=== PATIENT | female | born 1955 | race Caucasian/White ===

== ENCOUNTER 2017-05-09 03:48 | Emergency (ER) | payer OTHER ==
[2017-05-09] MEDS ORDERED: FAMOTIDINE IN SALINE, ISO-OSM 20 MG/50 ML PIGGYBACK IV ONE (04:21)
[2017-05-09] MEDS ORDERED: ONDANSETRON HCL 4 MG/2 ML VIAL ONE (04:21)
[2017-05-09] MEDS ORDERED: NORMAL SALINE 2,000 ML IV ONE (04:21)
[2017-05-09 04:26] LABS: BLOOD UREA NITROGEN 21 mg/dL (7-17); CHLORIDE 100 mmol/L (98-107); EST GLOMERULAR FILTRATION RATE > 60 mL/min; GLUCOSE 125 mg/dL (70-100); POTASSIUM 3.8 mmol/L (3.5-5.1); SODIUM 137 mmol/L (137-145)
[2017-05-09] MEDS ORDERED: ONDANSETRON ODT 4 MG TAB.RAPDIS ONE (04:53)
--- NOTE | 2017-05-09 05:50 | ER PHYSICIAN DOCUMENTATION ---
Physician Documentation [facility] Name:Belkis Marcial Age:61 yrs Sex:Female :1955 Arrival Date:05/09/2017 Time:03:48 Bed3 Private MD: Abram Joel Disposition: 05/09/17 03:55 Discharged to Home/Self Care. Impression: Gastroenteritis. - Condition is Good. - Discharge Instructions: GASTROENTERITIS, Viral [4y-Adult]. - Prescriptions for Zofran 4 mg Oral Tablet - take 1-2 tablet by ORAL route every 4-6 hours As needed; 10 tablet. - Medical Reconciliation form form. - Follow up: Private Physician; When: As needed; Reason: Continuance of care. - Problem is new. - Symptoms have improved. HPI: 05/09 04:00 This 61 yrs old Female presents to ER via Walk In with complaints of jm Nausea/Vomiting/Diarrhea. 04:00 The patient presents to the emergency department with nausea, with vomiting, with jm diarrhea, without any complaints of abdominal pain. Onset: The symptom(s)/episode began/occurred today. Historical: - Allergies: No known drug Allergies; - Home Meds: 1. None - PMHx: None; - PSHx: None; - Tetanus: < 10 years. - Ebola Screening: : Patient negative for fever greater than or equal to 101.5 degrees Fahrenheit, and additional compatible Ebola Virus Disease symptoms. Patient denies exposure to infectious person. Patient denies travel to an Ebola-affected area in the 21 days before illness onset. No symptoms or risks identified at this time. . - Immunization history: Flu Vaccine < 1 year. - Social history: Smoking status: Patient states was never smoker of tobacco. Patient/guardian denies using alcohol, street drugs. ROS: 04:00 Constitutional: Positive for fatigue, malaise. jm 04:00 Abdomen/GI: Positive for nausea, vomiting, diarrhea, Negative for abdominal pain. 04:00 Neuro: Positive for weakness. Exam: 04:00 Constitutional: The patient appears alert, awake, comfortable. jm 04:00 Cardiovascular: Rate: normal, Rhythm: regular. 04:00 Abdomen/GI: Bowel sounds: normal, Palpation: abdomen is soft and non-tender. 04:00 Psych: Behavior/mood is pleasant, Affect is calm. Vital Signs: 04:02 BP 137 / 57; Pulse 73; Resp 15; Temp 98.3; Pulse Ox 94% on R/A; Weight 46.27 kg; Height mk2 5 ft. 1 in. (154.94 cm); Pain 0/10; 04:52 BP 125 / 66; Pulse 75; Resp 13; Pulse Ox 96% on R/A; Pain 0/10; mk2 05:48 BP 122 / 58; Pulse 69; Resp 13; Pulse Ox 95% on R/A; Pain 0/10; mk2 04:02 Body Mass Index 19.27 (46.27 kg, 154.94 cm) mk2 MDM: 03:50 Patient medically screened. 04:00 Differential diagnosis: viral gastroenteritis, gastroenteritis. Data reviewed: vital jm signs, nurses notes, and as a result, I will discharge patient. Counseling: I had a detailed discussion with the patient and/or guardian regarding: the historical points, exam findings, and any diagnostic results supporting the discharge/admit diagnosis. Response to treatment: the patient's symptoms have markedly improved after treatment. 05/09 04:27 Order name: BASIC METABOLIC PANEL; Complete Time: 06:17 EDNM 05/09 03:55 Order name: I & O; Complete Time: 04:18 05/09 03:55 Order name: NPO; Complete Time: 04:18 05/09 03:55 Order name: Pulse Ox Continuous; Complete Time: 04:17 Dispensed Medications: 04:13 Drug: Zofran 4 mg; Route: IVP; Infused Over: 2 mins; Site: left antecubital; mv 04:28 Follow up: Response: Nausea is decreased mv 04:16 Drug: NS 0.9% 1000 ml; Route: IV; Rate: bolus; Site: left antecubital; mv 05:48 Follow up: IV Status: Completed infusion; IV Intake: 1000ml mk2 04:17 Drug: Pepcid 20 mg; Route: IVPB; Site: left antecubital; mv 05:48 Follow up: IV Status: Completed infusion; IV Intake: 100ml mk2 04:52 Drug: NS 0.9% 1000 ml; Route: IV; Rate: bolus; Site: left antecubital; mk2 05:47 Follow up: IV Status: Completed infusion; IV Intake: 1000ml mk2 05:36 CANCELLED (Other Intervention Used): Zofran 1 tablet PO every 4 hours; 4mg ODT Q4-6H mk2 prn N/V (Disp.#4) 05:37 Drug: Zofran 8 mg; {Note: to go.} Route: PO; mk2 05:48 Follow up: Response: Pharmacy closed - take home med pack mk2 Signatures: Abram Pierson MD MD jm Kruger, Meg, RN RN mk2 daniel mathias
--- NOTE | 2017-05-09 05:50 | ER NURSING DOCUMENTATION ---
Nurse's Notes [facility] Name:Belkis Marcial Age:61 yrs Sex:Female :1955 Arrival Date:05/09/2017 Time:03:48 Bed3 Private MD: Diagnosis:Gastroenteritis Presentation: 05/09 04:00 Presenting complaint: Patient states: Pt states "I think I ate something" I've been mk2 vomiting since 10pm with diarrhea. Pt denies pain. Transition of care: Home. Care prior to arrival: None. 04:00 Method Of Arrival: Walk In [facility] 04:00 Acuity: TERRY 3 mk2 Triage Assessment: 04:01 General: Appears in no apparent distress, Behavior is flat, inappropriate for age. mk2 Pain: Denies pain. Neuro: No deficits noted. Respiratory: No deficits noted. GI: Reports nausea, vomiting. Historical: - Allergies: No known drug Allergies; - Home Meds: 1. None - PMHx: None; - PSHx: None; - Tetanus: < 10 years. - Ebola Screening: : Patient negative for fever greater than or equal to 101.5 degrees Fahrenheit, and additional compatible Ebola Virus Disease symptoms. Patient denies exposure to infectious person. Patient denies travel to an Ebola-affected area in the 21 days before illness onset. No symptoms or risks identified at this time. . - Immunization history: Flu Vaccine < 1 year. - Social history: Smoking status: Patient states was never smoker of tobacco. Patient/guardian denies using alcohol, street drugs. Screenin:03 Infectious Disease Risk None. Abuse screen: Denies threats or abuse. Nutritional mk2 screening: No deficits noted. Assessment: 04:03 See Triage Assessment done by same RN. mk2 04:29 Reassessment: Patient states symptoms have improved. mv Vital Signs: 04:02 BP 137 / 57; Pulse 73; Resp 15; Temp 98.3; Pulse Ox 94% on R/A; Weight 46.27 kg; Height mk2 5 ft. 1 in. (154.94 cm); Pain 0/10; 04:52 BP 125 / 66; Pulse 75; Resp 13; Pulse Ox 96% on R/A; Pain 0/10; mk2 05:48 BP 122 / 58; Pulse 69; Resp 13; Pulse Ox 95% on R/A; Pain 0/10; mk2 04:02 Body Mass Index 19.27 (46.27 kg, 154.94 cm) mk2 ED Course: 03:50 Patient arrived in ED. ma1 03:50 Abram Pierson MD is Attending Physician. alyson 04:00 Karli Delcid, RN is Primary Nurse. mk2 04:00 Triage completed. mk2 04:02 Arm band placed on Bed in low position Call Light in Reach Gowned HOB Elevated Side mk2 rails up x1. 04:05 Inserted peripheral IV: saline lock: 20 gauge in left antecubital area and blood mv collected. 05:49 Valuables Remains with patient. Pulse ox on. NIBP on. Verbal reassurance given. Warm mk2 blanket given. Administered Medications: 04:13 Drug: Zofran 4 mg; Route: IVP; Infused Over: 2 mins; Site: left antecubital; mv 04:28 Follow up: Response: Nausea is decreased mv 04:16 Drug: NS 0.9% 1000 ml; Route: IV; Rate: bolus; Site: left antecubital; mv 05:48 Follow up: IV Status: Completed infusion; IV Intake: 1000ml mk2 04:17 Drug: Pepcid 20 mg; Route: IVPB; Site: left antecubital; mv 05:48 Follow up: IV Status: Completed infusion; IV Intake: 100ml mk2 04:52 Drug: NS 0.9% 1000 ml; Route: IV; Rate: bolus; Site: left antecubital; mk2 05:47 Follow up: IV Status: Completed infusion; IV Intake: 1000ml mk2 05:36 CANCELLED (Other Intervention Used): Zofran 1 tablet PO every 4 hours; 4mg ODT Q4-6H mk2 prn N/V (Disp.#4) 05:37 Drug: Zofran 8 mg; {Note: to go.} Route: PO; mk2 05:48 Follow up: Response: Pharmacy closed - take home med pack mk2 Intake: 05:47 IV: 1000ml; Total: 1000ml. mk2 05:48 IV: 100ml; Total: 1100ml. mk2 05:48 IV: 1000ml; Total: 2100ml. mk2 Outcome: 03:55 Discharge ordered by . alyson 05:48 Discharged to home ambulatory. mk2 05:48 Condition: improved 05:48 Discharge instructions given to patient, Instructed on discharge instructions, follow up and referral plans. medication usage, Prescriptions given X 1. 05:48 IV D/Burt 05:50 Patient left the ED. mk2 05/10 09:05 Discharge F/U Call: Unable to reach: no answer nf Signatures: Maria Fernanda Pinzon, RN RN Abram Bautista MD MD jm Kruger, Meg, RN RN calvin2 daniel mathias Melissa ma1
== END 2017-05-09 05:50 | disposition home or self-care (01) ==
LOC: ER 03:48
DX: K52.89 Other specified noninfective gastroenteritis and colitis (principal); R53.83 Other fatigue; R53.81 Other malaise; R53.1 Weakness
CPT/HCPCS: 80048; 96365; 96366; 96375; 99284; J2405; J7030